=== PATIENT | male | born 1980 | race Caucasian/White ===

== ENCOUNTER 2018-12-09 16:01 | Emergency (ER) | payer OTHER ==
[~2018-12-09] VITALS: Ht 188 cm; Wt 104.3 kg
[2018-12-09] MEDS ORDERED: NORCO 5-325 TA1 EAC1 PO (17:39)
[2018-12-09 18:04] VITALS: BP 144/81
== END 2018-12-09 18:04 | disposition home or self-care (01) ==
LOC: M.ERS 16:01
DX: S22.32XA Fracture of one rib, left side, initial encounter for closed fracture (principal); W01.0XXA Fall on same level from slipping, tripping and stumbling without subsequent striking against object, initial encounter; Y93.89 Activity, other specified; Y92.89 Other specified places as the place of occurrence of the external cause; Y99.8 Other external cause status